=== PATIENT | male | born 1935 | race Caucasian/White ===

== ENCOUNTER 2018-06-16 13:55 | Emergency (ER) | payer OTHER, BC ==
[~2018-06-16] VITALS: Ht 172.7 cm; Wt 66.2 kg
[~2018-06-16 13:55] MED LIST: ADULT LOW DOSE81 MG PO; CALCIUM 500 +1 EAC5 PO; CALCIUM PO; COLACE 100 MG100 MG PO; COLCHICINE0.6 MG PO; GLUCOSAMINE HC500 MG PO; LIDODERM 5%1 PATC1 TD; LISINOPRIL2.5 MG PO; MULTIVITAMINS PO; NORCO 5-325 TA1 EACH PO; PREDNISONE 20 M20 MG PO; ZETIA10 MG PO; ZOCOR 20 MG TAB20 M1 PO
[2018-06-16] MEDS ORDERED: CO Q-10100 MG PO (15:05)
[2018-06-16 15:13] LABS: ABSOLUTE NEUTROPHILS 3.3 thou/uL (1.4-8.2); BASOPHILS 0.7 % (0.0-2.0); EOSINOPHILS 2.2 % (0.0-3.0); HEMATOCRIT 40.6 % (42.0-52.0); HEMOGLOBIN 13.6 gm/dL (14.0-18.0); LYMPHOCYTES 24.4 % (24.0-44.0); MCHC 33.4 g/dL (28.0-37.0); PLATELET COUNT 149 thou/uL (150-400); POLYS 63.7 % (36.0-66.0); RBC 4.23 mil/uL (4.50-6.00); RDW 14.3 % (10.5-14.5); WBC 5.2 thou/uL (4.0-11.0)
[2018-06-16 15:17] LABS: ANION GAP 8 mmol/L (7-16); BUN 25 mg/dL (7-18); CALCIUM 9.1 mg/dL (8.5-10.1); CHLORIDE 101 mmol/L (98-107); CO2 29 mmol/L (21-32); CREATININE 1.5 mg/dL (0.7-1.3); GLUCOSE 157 mg/dL (74-106); SODIUM 138 mmol/L (136-145)
[2018-06-16 15:25] LABS: TROPONIN-I <0.06 ng/mL (<0.06)
[2018-06-16 16:59] VITALS: BP 144/74
--- NOTE | 2018-06-17 16:59 | EKG ---
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 : 1935 Requested By: Jose Gordon Order Number: [id number] MD: Shamar Escobar Measurements Intervals [place] Rate: 65 P: 40 [place]: 176 QRS: 2 QRSD: 128 T: 66 QT: 456 QTc: 475 Interpretive Statements Sinus rhythm Anteroseptal infarct, age indeterminate No previous ECG available for comparison Electronically Signed On 06-17-2018 16:59:25 CDT by Shamar Escobar [email or web address] ��������������������������������������������� <ELECTRONICALLY SIGNED> ���������������������������������������� By: Shamar Escobar MD, [facility] ��������������������������������������������� 06/17/18 1659 1414 1414 Shamar Escobar MD, FACC /EPI
--- NOTE | 2018-06-17 17:01 | EKG ---
[place] [address] [email or web address] [address] ELECTROCARDIOGRAM REPORT Name: BORIS BAPTISTE JR Room #: [facility] [id number] ������������������ Admission: 06/16/18 ������������������ Attend Phys: Discharge: 06/16/18 ������������������ Date of : 37 Report #: [id number] ����������������������������������������������������������������� [id number] THIS REPORT FOR: //name// [facility] ED Test Date: 2018-06-16 Test Time: 16:24:33 Pat Name: BORIS BAPTISTE Department: Room: Gender: [employer]: [facility] : 1935 Requested By: Jose Gordon Order Number: [id number] MD: Shamar Escobar Measurements Intervals [place] Rate: 55 P: 32 [place]: 194 QRS: -3 QRSD: 114 T: 48 QT: 444 QTc: 425 Interpretive Statements Sinus rhythm Atrial premature complex Anteroseptal infarct, age indeterminate No previous ECG available for comparison Electronically Signed On 06-17-2018 17:01:31 CDT by Shamar Escobar [email or web address] ��������������������������������������������� <ELECTRONICALLY SIGNED> ���������������������������������������� By: Shamar Escobar MD, [facility] ��������������������������������������������� 06/17/18 1701 1624 1624 Shamar Escobar MD, FACC /EPI
== END 2018-06-16 16:59 | disposition home or self-care (01) ==
LOC: ER 13:55
PROVIDERS: Emergency Medicine
DX: R42 Dizziness and giddiness (principal); Z88.0 Allergy status to penicillin; Z88.6 Allergy status to analgesic agent; Z95.1 Presence of aortocoronary bypass graft; Z96.642 Presence of left artificial hip joint; Z90.49 Acquired absence of other specified parts of digestive tract

== ENCOUNTER 2018-07-09 12:22 | Emergency (ER) | payer OTHER, BC ==
[~2018-07-09] VITALS: Ht 175.3 cm; Wt 66.2 kg
[~2018-07-09 12:22] MED LIST changes: +CO Q-10100 MG PO
[2018-07-09 12:46] LABS: ABSOLUTE NEUTROPHILS 3.8 thou/uL (1.4-8.2); BASOPHILS 1.1 % (0.0-2.0); EOSINOPHILS 2.1 % (0.0-3.0); HEMOGLOBIN 14.1 gm/dL (14.0-18.0); LYMPHOCYTES 26.4 % (24.0-44.0); MCH 32.3 pg (26.0-34.0); MCHC 33.6 g/dL (28.0-37.0); MCV 96.2 fL (80.0-100.0); MONOCYTES 8.6 % (1.0-8.0); PLATELET COUNT 192 thou/uL (150-400); POLYS 61.8 % (36.0-66.0); RBC 4.37 mil/uL (4.50-6.00); RDW 14.5 % (10.5-14.5); WBC 6.1 thou/uL (4.0-11.0)
[2018-07-09] MEDS ORDERED: ZOCOR20 MG PO (12:49)
[2018-07-09] MEDS ORDERED: ZYLOPRIM300 MG PO (12:52)
[2018-07-09 13:02] LABS: ANION GAP 11 mmol/L (7-16); BUN 27 mg/dL (7-18); CALCIUM 10.1 mg/dL (8.5-10.1); CHLORIDE 105 mmol/L (98-107); CO2 27 mmol/L (21-32); CREATININE 1.5 mg/dL (0.7-1.3); GLUCOSE 87 mg/dL (74-106); POTASSIUM 4.3 mmol/L (3.5-5.1); SODIUM 143 mmol/L (136-145)
[2018-07-09 13:12] LABS: TROPONIN-I <0.06 ng/mL (<0.06)
[2018-07-09 14:59] VITALS: BP 143/70
--- NOTE | 2018-07-11 18:20 | EKG ---
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: : 1935 Requested By: Jair Barnes Order Number: [id number] MD: Fadi Rankin Measurements Intervals [place] Rate: 70 P: 39 [place]: 185 QRS: 5 QRSD: 111 T: 75 QT: 455 QTc: 491 Interpretive Statements Sinus rhythm left atrial enlargement Nonspecific ST-T wave changes Compared to ECG 06/16/2018 16:24:33 Atrial premature complex(es) no longer present Electronically Signed On 07-11-2018 18:20:05 CDT by Fadi Rankin [email or web address] ��������������������������������������������� <ELECTRONICALLY SIGNED> ���������������������������������������� By: Fadi Rankin MD ��������������������������������������������� 07/11/18 1820 1232 1232 Fadi Rankin MD /PETER
== END 2018-07-09 15:00 | disposition home or self-care (01) ==
LOC: ER 12:22
PROVIDERS: Nurse Practitioner
DX: R07.89 Other chest pain (principal); Z88.0 Allergy status to penicillin; Z88.6 Allergy status to analgesic agent; Z96.642 Presence of left artificial hip joint; Z98.890 Other specified postprocedural states